=== PATIENT | female | born 1985 | race Caucasian/White ===

== ENCOUNTER 2017-05-11 17:49 | Inpatient (IN) | payer OTHER ==
[2017-05-11] MEDS ORDERED: Nalbuphine* 20 MG/ML 1 ML VIAL IV PRN (22:22)
[2017-05-11] MEDS ORDERED: Promethazine INJ(RESTRICTED)* 25 MG/ML 1 ML VIAL IV PRN (22:23)
[2017-05-11 22:55] LABS: Hematocrit 37 % (35-47); Hemoglobin 12.6 g/dl (12.0-16.0); Mean Corpuscular HGB Conc 34 g/dl (31-36); Mean Corpuscular Hemoglobin 32 pg (27-31); Mean Corpuscular Volume 95 fL (80-97); Mean Platelet Volume 11 um3 (7.4-10.4); Red Blood Count 3.89 10^6/ul (4.0-5.4); Red Cell Distribution Width 14 % (10.5-15); White Blood Count 20.8 10^3/ul (3.5-10.8)
[2017-05-12] MEDS ORDERED: Oxytocin in LR* 20 UNITS/1,000 ML BAG IVPB ONE (02:32)
[2017-05-12] MEDS ORDERED: Misoprostol TAB* 200 MCG PR ONE (03:12)
[2017-05-12] MEDS ORDERED: Witch Hazel PAD* JAR TOPICAL PRN (03:12)
[2017-05-12] MEDS ORDERED: Dibucaine 1% 28.35 GM TUBE PR PRN (03:12)
[2017-05-12] MEDS ORDERED: Glycerin ADULT SUPP PR PRN (03:12)
[2017-05-12] MEDS ORDERED: Oxytocin in LR* 20 UNITS/1,000 ML BAG IVPB SCH (04:00)
[2017-05-12] MEDS: Ibuprofen TAB* 600 MG PO PRN ×3 (04:21→17:00)
[2017-05-12] MEDS ORDERED: Ammonia Inhalant* 1 EA AMP ONE ×3 (04:58→09:59)
[2017-05-12] MEDS: Acetaminophen TAB* 325 MG PO PRN ×2 (07:57→19:47)
[2017-05-12] MEDS: Docusate CAP* 100 MG PO SCH ×3 (07:57→19:47)
[2017-05-12] MEDS: Prenatal Vitamin TAB PO SCH (07:57)
[2017-05-12] MEDS ORDERED: Simethicone TAB* 80 MG TAB.CHEW PO SCH (08:30)
--- NOTE | 2017-05-12 12:40 | PTEDU ---
Patient Name: ADRIANO ARREAGA ADRIANO ARREAGA selected video: BBOB: Nurturing Your Gorgeous \T\Growing Baby by to view on 05/12/2017 at 12:38:04 [id number]
--- NOTE | 2017-05-12 15:40 | PTEDU ---
Patient Name: ADRIANO ARREAGA ADRIANO ARREAGA selected video: BBOB: Nurturing Your Gorgeous \T\Growing Baby by to view on 05/12/2017 at 3:39:07 PM [id number]
--- NOTE | 2017-05-12 21:50 | PTEDU ---
Patient Name: ADRIANO ARREAGA ADRIANO ARREAGA selected video: Never Ever Shake a Baby to view on 05/12/2017 at 9:48:42 PM [id number]
--- NOTE | 2017-05-12 22:02 | PTEDU ---
Patient Name: ADRIANO ARREAGA ADRIANO ARREAGA selected video: Follow Me Mum: The [facility] to Successful to view on 7 at 10:00:35 [id number]
[2017-05-13] MEDS: Ibuprofen TAB* 600 MG PO PRN ×4 (00:25→21:03)
[2017-05-13] MEDS: Acetaminophen TAB* 325 MG PO PRN (03:02)
[2017-05-13 06:19] LABS: Hematocrit 29 % (35-47); Hemoglobin 9.7 g/dl (12.0-16.0); Mean Corpuscular HGB Conc 34 g/dl (31-36); Mean Corpuscular Hemoglobin 33 pg (27-31); Mean Corpuscular Volume 97 fL (80-97); Mean Platelet Volume 10 um3 (7.4-10.4); Red Blood Count 2.94 10^6/ul (4.0-5.4); Red Cell Distribution Width 14 % (10.5-15); White Blood Count 17.4 10^3/ul (3.5-10.8)
[2017-05-13] MEDS: Docusate CAP* 100 MG PO SCH ×3 (08:36→21:03)
[2017-05-13] MEDS: Ferrous Gluconate TAB* 324 MG TAB PO SCH ×2 (08:36→21:03)
[2017-05-13] MEDS: Prenatal Vitamin TAB PO SCH (08:37)
[2017-05-14] MEDS: Ibuprofen TAB* 600 MG PO PRN (04:30)
[2017-05-14 08:00] VITALS: BP 123/79
[2017-05-14] MEDS ORDERED: Tetan/Diph/Pertus SYR(Tdap)* 0.5 ML SYR(BOOSTRIX) use SYR IM ONE (08:09)
[2017-05-14] MEDS: Prenatal Vitamin TAB PO SCH (09:14)
[2017-05-14] MEDS: Ferrous Gluconate TAB* 324 MG TAB PO SCH (09:14)
[2017-05-14] MEDS: Docusate CAP* 100 MG PO SCH (09:15)
[2017-05-14] MEDS: Acetaminophen TAB* 325 MG PO PRN (09:16)
== END 2017-05-14 10:48 | disposition home or self-care (01) | DRG 775 ==
LOC: MCHOBOUT 17:49 → MCHOB 18:48
PROVIDERS: ADMIT Obstetrics & Gynecology; ATTEND Obstetrics & Gynecology
PROC: 10E0XZZ Delivery of Products of Conception, External Approach (ICD-10-PCS; principal; 2017-05-12)
PROC: 0KQM0ZZ Repair Perineum Muscle, Open Approach (ICD-10-PCS; 2017-05-12)
PROC: 4A1HXCZ Monitoring of Products of Conception, Cardiac Rate, External Approach (ICD-10-PCS; 2017-05-12)
DX: O69.81X0 Labor and delivery complicated by cord around neck, without compression, not applicable or unspecified (principal); O32.2XX0 Maternal care for transverse and oblique lie, not applicable or unspecified; O32.6XX0 Maternal care for compound presentation, not applicable or unspecified; Z37.0 Single live birth; Z3A.39 39 weeks gestation of pregnancy; Z88.5 Allergy status to narcotic agent; O70.1 Second degree perineal laceration during delivery; O75.89 Other specified complications of labor and delivery
CPT/HCPCS: 36415; 85025; 85027; 86850; 86900; 86901; 90715; A9270-GY; J2300; J2550